=== PATIENT | female | born 1980 | race Caucasian/White ===

== ENCOUNTER 2023-09-21 08:00 | Outpatient (CLI) | payer SELFPAY ==
--- NOTE | 2023-09-21 15:05 | XRAY Report ---
PROCEDURE: Lumbar Spine 2-3V INDICATIONS: LUMBAR SPONDYLOSIS TECHNIQUE: 3 views of the lumbar spine were acquired. COMPARISON: Chest radiographs 03/17/2013. FINDINGS: Surgical change: None. Bones: 4 [id number] vertebrae are present. 12 rib pairs are noted on the prior chest radiograph s. There is normal bony alignment. No vertebral body compression fractures. No suspicious bony lesio ns. Minimal degenerative endplate changes are present. Soft tissues: Overlying bowel gas pattern is normal. No suspicious soft tissue calcifications. 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 2.Minimal spondylosis. Reviewed by: Joe Shine MD on 09/21/2023 3:03 PM PDT Approved by: Joe Shine MD on 09/21/2023 3:03 PM PDT Station ID: [id number]
== END 2023-09-21 23:59 | disposition home or self-care (01) ==
LOC: DI.S 08:00
PROVIDERS: ATTEND Emergency Medicine
DX: M47.816 Spondylosis without myelopathy or radiculopathy, lumbar region (principal)

== ENCOUNTER 2023-10-07 15:13 | Outpatient (CLI) | payer MEDICAID ==
--- NOTE | 2023-10-09 08:03 | Mammography Report ---
BILATERAL DIGITAL SCREENING MAMMOGRAM 3D/2D WITH AUGMENTATION: 10/07/2023 CLINICAL: Routine screening. Family history of breast cancer. Baseline exam. No prior exams were available for comparison. Both breasts are heterogeneously dense, which may obscure small masses (category c / 51-75% glandular tissue). Bilateral breast implants are intact. No significant masses, calcifications, or other findings are seen in either breast. IMPRESSION: NEGATIVE There is no mammographic evidence of malignancy. A 1 year screening mammogram is recommended. Based on the Tyrer Cuzick model (a risk assessment model) the patient's lifetime risk is 10.0% and he r 10 year risk is 1.8%. According to the ACR, ACS, and NCCN guidelines, an annual breast MRI exam mona ng with mammogram is recommended if the patient's lifetime risk is 20% or greater. This exam was interpreted at Station ID: [id number]. NOTE: For mammograms, a report in lay terms will be sent to the patient. Approximately 15% of breast malignancies will not be visualized mammographically. In the management of a palpable breast mass, a negative mammogram must not discourage biopsy of a clinically suspicious lesion. Electronically Signed By: Richmond olmos/tom:10/08/2023 09:09:57 letter sent: No_Letter ACR BI-RADS Category 1: Negative 3341F PARENCHYMAL PATTERN: (D) - The breast(s) demonstrate(s) heterogeneously dense fibroglandular nemo harvey. BI-RADS CATEGORY: (1) - 1 RECOMMENDATION: (ANNUAL) - Recommend routine annual screening mammography. [id number] 1 year screening LATERALITY: (B)
== END 2023-10-07 15:14 | disposition home or self-care (01) ==
LOC: DI.S 15:13
DX: Z12.31 Encounter for screening mammogram for malignant neoplasm of breast (principal); Z80.3 Family history of malignant neoplasm of breast; R92.333 Mammographic heterogeneous density, bilateral breasts; Z98.82 Breast implant status